=== PATIENT | female | born 1990 | race Two or more races ===

== ENCOUNTER → 2023-03-22 | Outpatient (CLI) | payer OTHER | LOC: M RAD 14:51 | PROVIDERS: ATTEND Obstetrics & Gynecology | DX: N93.9 Abnormal uterine and vaginal bleeding, unspecified (principal); N80.9 Endometriosis, unspecified; E28.2 Polycystic ovarian syndrome ==

== ENCOUNTER 2023-05-30 06:12 | Day surgery (SDC) | payer OTHER ==
[~2023-05-30] VITALS: Ht 167.6 cm; Wt 115.2 kg
[~2023-05-30 06:12] MED LIST: DULO1CAP4 PO; IBUP200C25 PO; LISI20TA33 PO; UNRESOLVED CLARIFICATION ENTRY XX SCH
[2023-05-30] MEDS ORDERED: LR 1,000 ML IV SCH ×2 (06:35→10:40)
[2023-05-30] MEDS ORDERED: ceFAZolin SOD 1 GM in D5W MINI-BAG PLUS 50 ML IV ONE (06:45)
[2023-05-30] MEDS ORDERED: ceFAZolin SOD 2 GM in IV 1 EA IV ONE (06:45)
[2023-05-30] MEDS ORDERED: MIDAZOLAM INJ 2MG/2ML VIAL As Ordered ONE (07:12)
[2023-05-30] MEDS ORDERED: fentaNYL 100 MCG/2 ML INJECTION As Ordered ONE (07:12)
[2023-05-30] MEDS ORDERED: ONDANSETRON 4MG 2ML VIAL As Ordered ONE (07:13)
[2023-05-30] MEDS ORDERED: ACETAMINOPHEN 1000MG 100ML IV BAG As Ordered ONE (07:13)
[2023-05-30] MEDS ORDERED: LIDOCAINE 2% 100MG/5ML SDV (FOR ANES.) As Ordered ONE (07:13)
[2023-05-30] MEDS ORDERED: SUGAMMADEX SODIUM 500 MG/5 ML VIAL (BRIDION) As Ordered ONE (07:13)
[2023-05-30] MEDS ORDERED: ROCURONIUM BROMIDE 50MG/5ML VIAL As Ordered ONE ×2 (07:13→09:15)
[2023-05-30] MEDS ORDERED: KETOROLAC 60MG 2ML VIAL As Ordered ONE (07:13)
[2023-05-30] MEDS ORDERED: propofoL 200 MG/20 ML VIAL As Ordered ONE (07:13)
[2023-05-30] MEDS ORDERED: ACETAMINOPHEN *IV* 1,000 MG in IV 1 EA IV ONE (07:30)
[2023-05-30] MEDS ORDERED: GABAPENTIN 300 MG CAP PO ONE (07:30)
[2023-05-30 07:37] LABS: HEMATOCRIT 44.3 % (36.0-47.0); HEMOGLOBIN 13.9 g/dl (12.0-15.5); MEAN CORPUSCULAR HGB CONC 31.4 g/dl (32.0-36.5); MEAN CORPUSCULAR VOLUME 79.5 fl (80.0-96.0); PLATELET COUNT, AUTOMATED 314 10^3/uL (150-450); RED BLOOD COUNT 5.57 10^6/uL (4.00-5.40)
[2023-05-30] MEDS ORDERED: IBUP-1621 PO (07:39)
[2023-05-30] MEDS ORDERED: HOME MED LIST COMPLETE! XX SCH (07:40)
[2023-05-30 07:58] LABS: ALKALINE PHOSPHATASE 78 U/L (46-116); ALT/SGPT 26 U/L (7.0-40); AST/SGOT 15 U/L (<34); BILIRUBIN,TOTAL 1.3 MG/DL (0.3-1.2); BLOOD UREA NITROGEN 9 MG/DL (9-23); CALCIUM LEVEL 9.2 MG/DL (8.5-10.1); CARBON DIOXIDE LEVEL 27 MMOL/L (20-31); CHLORIDE LEVEL 105 MMOL/L (98-107); CREATININE FOR GFR 0.76 MG/DL (0.55-1.30); GLOMERULAR FILTRATION RATE > 60.0 (>60); GLUCOSE, FASTING 86 MG/DL (60-100); POTASSIUM SERUM 4.3 MMOL/L (3.5-5.1); SODIUM LEVEL 138 MMOL/L (136-145); TOTAL PROTEIN 7.2 G/DL (5.7-8.2)
[2023-05-30] MEDS ORDERED: HYDROmorphone HCL 2MG/ML 1ML VIAL As Ordered ONE (08:34)
[2023-05-30] MEDS ORDERED: ATROPINE SULF 0.4 MG/ML 1ML VIAL As Ordered ONE (08:43)
[2023-05-30] MEDS ORDERED: fentaNYL 100 MCG/2 ML INJECTION IV PRN (10:40)
[2023-05-30] MEDS ORDERED: oxyCODONE 5MG TAB PO PRN (10:40)
[2023-05-30] MEDS ORDERED: ONDANSETRON 4MG 2ML VIAL IV PRN (10:40)
[2023-05-30] MEDS ORDERED: oxyCODONE 5MG TAB PO ONE (11:15)
[2023-05-30] MEDS ORDERED: diphenhydrAMINE 50MG/ML VIAL IV STA (11:54)
[2023-05-30] MEDS ORDERED: METOCLOPRAMIDE INJ 10MG/2ML VIAL IV PRN (11:55)
[2023-05-30 12:40] VITALS: BP 130/78; TEMP 97.4; O2SAT 96
[2023-05-30] MEDS ORDERED: KETOROLAC 30 MG/ML 1ML VIAL IV ONE (14:00)
== END 2023-05-30 12:49 | disposition home or self-care (01) ==
LOC: M SDC 06:12
PROVIDERS: ATTEND Obstetrics & Gynecology
DX: N93.9 Abnormal uterine and vaginal bleeding, unspecified (principal); N94.6 Dysmenorrhea, unspecified; D25.2 Subserosal leiomyoma of uterus; Z30.46 Encounter for surveillance of implantable subdermal contraceptive; Z91.030 Bee allergy status; J30.2 Other seasonal allergic rhinitis; Z88.0 Allergy status to penicillin; F17.200 Nicotine dependence, unspecified, uncomplicated; I10 Essential (primary) hypertension; Z79.899 Other long term (current) drug therapy
CPT/HCPCS: 11982; 36415; 58552; 80053; 81025; 85027; 86850; 86900; 86901; 87635; 88307; J0131; J0461; J0665; J0690; J1100; J1170; J1885; J2250; J2405; J3010

== ENCOUNTER → 2025-06-30 | Outpatient (CLI) | payer OTHER ==
[~2025-06-30] MED LIST changes: +IBUP-1621 PO; -UNRESOLVED CLARIFICATION ENTRY XX SCH
[2025-06-30 13:59] LABS: Trichomonas vaginalis (AMP) NOT DETECTED (NEGATIVE)
[2025-06-30 13:59] LABS: HIV 1&2 SCREEN NEGATIVE (NEGATIVE)
[2025-06-30 14:23] LABS: GC DNA AMPLIFICATION NEGATIVE (NEGATIVE)
[2025-07-01 12:23] LABS: HSV 1 IGG TYPE SPECIFIC < 0.90 index (<0.90)
== END ==
LOC: M WUC 09:56
PROVIDERS: ATTEND Student in an Organized Health Care Education/Training Program
DX: R30.0 Dysuria (principal)